=== PATIENT | female | born 1965 | race Caucasian/White ===

== ENCOUNTER → 2024-05-19 14:50 | Outpatient (REF) | payer OTHER, SELFPAY ==
[2024-05-26 03:28] LABS: HPV, High Risk Not Detected; HPV, High Risk Source Anal
== END ==
LOC: CLAB 14:50
PROVIDERS: ATTENDING PHYSICIAN Surgery
DX: B97.7 Papillomavirus as the cause of diseases classified elsewhere (principal)
CPT/HCPCS: 87624; 88112

== ENCOUNTER 2024-05-25 06:33 | Day surgery (SDC) | payer OTHER, SELFPAY ==
[2024-05-25 11:35] VITALS: BMI 24.8
[2024-05-25 11:36] VITALS: BP 161/93
[2024-05-25] MEDS: NORMOSOL-R 1000 IV (11:50)
[2024-05-25 16:15] VITALS: BP 148/1
[2024-05-25 16:16] VITALS: BP 148/71
[2024-05-25 16:30] VITALS: BP 138/74
[2024-05-25 16:45] VITALS: BP 144/76
[2024-05-25 17:00] VITALS: BP 143/78
== END 2024-05-25 17:14 | disposition home or self-care (01) ==
LOC: SDS 06:33
PROVIDERS: ATTENDING PHYSICIAN Surgery
DX: K64.5 Perianal venous thrombosis (principal)
CPT/HCPCS: 46255; 88304; 93005